=== PATIENT | female | born 1975 | race Caucasian/White ===

== ENCOUNTER 2022-11-20 08:41 | Outpatient (REF) | payer SELFPAY | END 2022-11-20 08:42 | disposition home or self-care (01) | LOC: HO.HAP 08:41 | PROVIDERS: Visit Provider Internal Medicine | DX: Z46.1 Encounter for fitting and adjustment of hearing aid (principal); H90.3 Sensorineural hearing loss, bilateral | CPT/HCPCS: V5299 ==